=== PATIENT | male | born 1970 | race Caucasian/White ===

== ENCOUNTER 2017-05-28 04:56 | Inpatient (IN) | payer BC, OTHER ==
[2017-05-28 05:10] VITALS: BMI 29.9
[2017-05-28] MEDS ORDERED: predniSONE 20 MG TABLET (UD) PO ONE (05:23)
[2017-05-28] MEDS ORDERED: predniSONE 20 MG TABLET (UD) ONE (05:24)
[2017-05-28] MEDS ORDERED: ALBUTEROL SO4 2.5/IPRATROPIUM 0.5 INH SOL 3 ML VIAL.NEB. NEB ONE (05:24)
--- NOTE | 2017-05-28 05:24 | PDOC ---
History of Present Illness - General Chief Complaint: Asthma Stated Complaint: ASTHMA Time Seen by Provider: 05/28/17 05:04 - History of Present Illness Initial Comments: 05/28/17 05:15 46 yo M with h/o asthma who arrives EMS with SOB. Patient reports worsening SOB over the past 2 weeks with productive cough with green and clear sputum production. Reports that he ran out of albuterol a week ago. Denies N/V, F/C, CP , SOB, abdominal pain, diarrhea, constipation, urinary complaints, weakness, or LOC. Tobacco cessation 3 months ago. Past History - Past Medical History Allergies/Adverse Reactions: Allergies Allergy/AdvReac Type Severity Reaction Status Date / Time No Known Allergies Allergy Verified 05/28/17 05:10 Home Medications: Ambulatory Orders Amlodipine Besylate 10 mg PO DAILY 04/12/13 Metoprolol Tartrate 100 mg PO BID 04/12/13 Oxycodone HCl/Acetaminophen [Percocet 5-325 mg Tablet -] 1 tab PO Q6H PRN #16 tablet 04/12/13 Percocet 5-325 mg Tablet - 1 mg PO 04/12/13 Soma - 04/12/13 Montelukast Na [Singulair -] 10 mg PO HS #30 tablet 05/28/17 HTN: Yes - Immunization History Immunization Up to Date: No - Suicide/Smoking/Psychosocial Hx Smoking History: Never smoked Have you smoked in the past 12 months: No Number of Cigarettes Smoked Daily: 2 Information on smoking cessation initiated: No Hx Alcohol Use: No Drug/Substance Use Hx: No Substance Use Type: None Review of Systems - Review of Systems Comments:: 05/28/17 05:15 GENERAL/CONSTITUTIONAL: No fever or chills. No weakness. HEAD, EYES, EARS, NOSE AND THROAT: No change in vision. No ear pain or discharge. No sore throat.- CARDIOVASCULAR: + SOB. No chest pain. RESPIRATORY: + cough, and wheezing. No hemoptysis. GASTROINTESTINAL: No nausea, vomiting, diarrhea or constipation. GENITOURINARY: No dysuria, frequency, or change in urination. MUSCULOSKELETAL: No joint or muscle swelling or pain. No neck or back pain. SKIN: No rash NEUROLOGIC: No headache, vertigo, loss of consciousness, or change in strength/ sensation. ENDOCRINE: No increased thirst. No abnormal weight change HEMATOLOGIC/LYMPHATIC: No anemia, easy bleeding, or history of blood clots. ALLERGIC/IMMUNOLOGIC: No hives or skin allergy. *Physical Exam - Vital Signs Last Vital Signs Temp Pulse Resp BP Pulse Ox 98.7 F 103 H 24 174/98 95 05/28/17 05:02 05/28/17 05:02 05/28/17 05:02 05/28/17 05:02 05/28/17 05:02 - Physical Exam Comments: 05/28/17 05:16 GENERAL: Awake, alert, and appropriately interactive EYES: PERRLA, clear conjunctiva NOSE: Nose is clear without discharge EARS: EACs and TMs are normal THROAT: Moist mucosa, oropharynx is clear without erythema or exudates, NECK: Supple, no adenopathy, no meningismus CHEST: Lungs are clear without crackles, or wheezes HEART: Regular rhythm, normal S1 and S2, no murmurs ABDOMEN: Soft and nontender with normal bowel sounds, no organomegaly, no mass, no rebound, no guarding EXTREMITIES: Normal NEURO: Behavior normal for age, normal cranial nerves, normal tone SKIN: Unremarkable, no rash, no swelling, no bruising, no signs of injury ED Treatment Course - LABORATORY CBC & Chemistry Diagram: 05/28/17 06:43 05/28/17 06:43 Medical Decision Making - Medical Decision Making 05/28/17 05:43 46 yo M with h/o asthma who arrives EMS with worsening SOB over the past 2 weeks with productive cough with green and clear sputum production. Received 2 duonebs, Epi, Dexamethasone in route. Denies N/V, F/C, CP, SOB, abdominal pain , diarrhea, constipation, urinary complaints, weakness, or LOC. Tobacco cessation 3 months ago. BP 174/98, afebrile, and non hypoxic on RA 95 % O2. Patient with labored breathing and audible bedside insp/exp rhonci. Absent rales. S/s likely 2/2 acute asthma exacerbation in setting of recent viral URI vs. PNA. DDx: Asthma, PNA, Influenza ED Course: Duonebs, Prednisone 60 mg, Magnesium Sulfate 2 mg 05/28/17 07:04 CXR: Unremarkable 05/28/17 07:04 CBC: Unremarkable 05/28/17 07:05 Breathing status not improved. Will microblog inpt. hospitalist for admission. *DC/Admit/Observation/Transfer Diagnosis at time of Disposition: Asthma attack Qualifiers: Asthma severity: moderate Asthma persistence: unspecified Qualified Code(s): J45.901 - Unspecified asthma with (acute) exacerbation - Discharge Dispostion Condition at time of disposition: Fair - Prescriptions Prescriptions: Montelukast Na [Singulair -] 10 mg PO HS #30 tablet - Referrals Referrals: ON STAFF,NOT [Primary Care Provider] - - Patient Instructions Printed Discharge Instructions: Asthma -- Adult Additional Instructions: Please return to the emergency department with any new or worsening symptoms or concerns. Please follow up with PCP within 24-72 hours. - Post Discharge Activity - Attestations Physician Attestion: 05/28/17 07:08 I attest to the documentation provided in this note.
[2017-05-28] MEDS ORDERED: MAGNESIUM SULF 50% (8.12 MEQ/2 ML-1 GM VIAL) IVPB ONE (05:28)
[2017-05-28] MEDS: ALBUTEROL SO4 2.5/IPRATROPIUM 0.5 INH SOL 3 ML VIAL.NEB. NEB SCH ×4 (05:29→06:52)
[2017-05-28] MEDS ORDERED: MAGNESIUM SULFATE IN WATER 2 GM/50 ML IVPB IVPB ONE (05:45)
--- NOTE | 2017-05-28 06:14 | PDOC ---
Attending Attestation - Resident Resident Name: Talha James - ED Attending Attestation I have performed the following: I have examined & evaluated the patient, The case was reviewed & discussed with the resident, I agree w/resident's findings & plan - HPI HPI: 05/28/17 06:14 Pt comes with asthma exacerbation.
[2017-05-28 06:55] LABS: BASO % 0.3 % (0-2.0); EOS % 17.5 % (0-4.5); HEMATOCRIT 42.1 % (35.4-49); HEMOGLOBIN 14.1 GM/dL (11.7-16.9); LYMPH % 8.1 % (8-40); MCH 31.1 pg (25.7-33.7); MCHC 33.5 g/dl (32.0-35.9); MONO % 5.1 % (3.8-10.2); PLATELET COUNT 250 K/MM3 (134-434); RBC 4.53 M/mm3 (4.00-5.60); RDW 13.3 % (11.9-15.9); WHITE BLOOD COUNT 9.6 K/mm3 (4.0-10.0)
[2017-05-28 07:18] LABS: INR 1.01 (0.82-1.09); PROTHROMBIN TIME (PATIENT) 11.4 SEC (9.98-11.88)
[2017-05-28] MEDS ORDERED: MONTELUKAST NA 10 MG TABLET PO ONE (07:23)
[2017-05-28 07:29] LABS: ALBUMIN 3.6 g/dl (3.4-5.0); ALK PHOS 85 U/L (45-117); ANION GAP 8 (8-16); BILIRUBIN,TOTAL 0.3 mg/dL (0.2-1.0); BLOOD UREA NITROGEN 20 mg/dL (7-18); CALCIUM 8.1 mg/dL (8.5-10.1); CHLORIDE 107 mmol/L (98-107); CO2 24 mmol/L (21-32); CREATININE 0.9 mg/dL (0.7-1.3); GLUCOSE,RANDOM 116 mg/dL (74-106); POTASSIUM 4.4 mmol/L (3.5-5.1); SGOT/AST 30 U/L (15-37); SGPT/ALT 36 U/L (12-78); SODIUM 139 mmol/L (136-145); TOT PROT 6.9 g/dl (6.4-8.2)
[2017-05-28 08:06] LABS: ARTERIAL BLOOD GAS BASE EXCESS -2.4 meq/l (-2-2); ARTERIAL BLOOD GAS PCO2 48.3 mmHg (35-45); ARTERIAL BLOOD GAS PO2 91.6 mmHg (80-100); ARTERIAL BLOOD GAS pH 7.31 (7.35-7.45)
--- NOTE | 2017-05-28 08:15 | PDOC ---
*Physical Exam - Vital Signs Last Vital Signs Temp Pulse Resp BP Pulse Ox 98.7 F 82 16 112/58 99 05/28/17 05:02 05/28/17 07:01 05/28/17 07:01 05/28/17 07:01 05/28/17 07:01 05/28/17 07:[address] James at the beginning of my shift. 46 YOM with h/o asthma who p/w 2 weeks mild SOB with acute worsening this morning. Labored breathing, called 911, received nebs, dex, and epi en route, remained with increased WOB on arrival here to the ED. Given DuoNeb, prednisone, Mg, and Singulair in ED and remains with increased WOB. ABG ordered and will draw, will admit for asthma exacerbation. - Physical Exam Respiratory/Chest: positive: Accessory Muscle Use, Labored Respiration, Rapid RR , Wheezing (audible across the room). negative: Stridor Cardiovascular: positive: Regular Rhythm, Regular Rate, S1, S2. negative: Edema , JVD, Murmur ED Treatment Course - LABORATORY CBC & Chemistry Diagram: 05/28/17 06:43 05/28/17 06:43 - ADDITIONAL ORDERS Additional order review: Laboratory Results 05/28/17 05/28/17 06:43 06:43 PT with INR 11.40 INR 1.01 Sodium 139 Potassium 4.4 Chloride 107 Carbon Dioxide 24 Anion Gap 8 BUN 20 H Creatinine 0.9 Creat Clearance w eGFR > 60 Random Glucose 116 H Calcium 8.1 L Total Bilirubin 0.3 AST 30 ALT 36 Alkaline Phosphatase 85 Total Protein 6.9 Albumin 3.6 05/28/17 06:07 Influenza Types A,B Antigen (BRITTANY) - Final Nasopharyngeal Swab - Final 05/28/17 06:43 RBC 4.53 MCV 93.0 MCHC 33.5 RDW 13.3 MPV 8.0 Neutrophils % 69.0 Lymphocytes % 8.1 Monocytes % 5.1 Eosinophils % 17.5 H Basophils % 0.3 - Medications Given in the ED: ED Medications Discontinued Medications Generic Name Dose Route Start Last Admin Trade Name Freq PRN Reason Stop Dose Admin Albuterol/Ipratropium 1 amp 05/28/17 05:30 05/28/17 06:52 Duoneb - NEB 05/28/17 06:16 1 amp Q15M WALLY Administration MAGNESIUM SULFATE IN WATER 2 gm in 50 mls @ 50 mls/hr 05/28/17 05:45 06:52 Magnesium Sulf 2 G/50 Ml Bag IVPB 05/28/17 06:44 50 mls/hr ONCE ONE Administration Prednisone 60 mg 05/28/17 05:23 05/28/17 05:29 Deltasone - PO 05/28/17 05:24 60 mg ONCE ONE Administration Medical Decision Making - Medical Decision Making 05/28/17 08:15 ABG notable for pH 7.31, PCO2 48.3. MBMD sent for admission (Med/Surg Obs). 05/28/17 08:47 Patient remains tachypneic, wheezing audible across the room. MBMD sent for admission. 05/28/17 09:30 Patient admitted to Med/Surg Obs to Dr. Maria. Azithromycin PO one-time dose ordered as patient notes 2 mo cough. *DC/Admit/Observation/Transfer Diagnosis at time of Disposition: Hypercapnia Asthma attack Qualifiers: Asthma severity: moderate Asthma persistence: unspecified Qualified Code(s): J45.901 - Unspecified asthma with (acute) exacerbation Chronic bronchitis Qualifiers: Chronic bronchitis type: unspecified Qualified Code(s): J42 - Unspecified chronic bronchitis - Discharge Dispostion Condition at time of disposition: Guarded Admit: Yes - Referrals - Patient Instructions - Post Discharge Activity
[2017-05-28] MEDS ORDERED: MONTELUKAST NA 10 MG TABLET ONE (08:41)
[2017-05-28] MEDS ORDERED: AZITHROMYCIN 500 MG TABLET PO ONE (09:14)
[2017-05-28] MEDS ORDERED: AZITHROMYCIN 250 MG TABLET ONE (09:30)
[2017-05-28] MEDS ORDERED: methylPREDNISolone NA SUCC 40 MG/1 ML VIAL IVPUSH SCH (10:00)
--- NOTE | 2017-05-28 10:14 | HP ---
CHIEF COMPLAINT: shortness of breath PCP: doesn't have one HISTORY OF PRESENT ILLNESS: This is a 46 year old male with a past medical history of hypertension and asthma presenting to the ED for shortness of breath. Patient states that he has had 3 "attacks" where he was not able to breathe in the last 3 weeks, the last of which happened last night and prompted him to come to the emergency room. He states that his chest is very tight and that he has difficulty getting air into his lungs. He states that overall, he hasn't been feeling well for 2 months, having symptoms similar to the flu and additional chest tightness. He states that before these episodes, he has had asthma attacks over 15 years ago. Patient went to the doctor 2 months ago and got a short course of prednisone which had run out, and ever since he reports not feeling well. Patient states that he has never been intubated before. He states that he works in construction and has been around a house with possible noxious smells. Denies chest pain, nausea, vomiting, diarrhea, fevers, chills. ER course was notable for: (1) Zithromax 500 given (2) EKG normal (3) ABG respiratory acidosis Recent Travel: none PAST MEDICAL HISTORY: Hypertension, Asthma Social History: Smoking: none Alcohol: none Drugs: none Family History: father early from unknown cause, mother at 88yo from unknown cause Allergies No Known Allergies Allergy (Verified 05/28/17 05:10) HOME MEDICATIONS: Home Medications Medication Instructions Recorded Amlodipine Besylate [Amlodipine 10 tab PO DAILY MDD 10 05/28/17 Besylate] Metoprolol Tartrate 100 mg PO TID 05/28/17 Montelukast Sodium [Singulair] 10 mg PO HS 05/28/17 REVIEW OF SYSTEMS CONSTITUTIONAL: Absent: fever, chills, diaphoresis, generalized weakness, malaise, loss of appetite, weight change HEENT: nasal congestion, Absent: rhinorrhea,, throat pain, throat swelling, difficulty swallowing, mouth swelling, ear pain, eye pain, visual changes CARDIOVASCULAR: lightheadedness Absent: chest pain, syncope, palpitations, irregular heart rate, , peripheral edema RESPIRATORY: cough, shortness of breath, wheezing Absent:, dyspnea with exertion, orthopnea, stridor, hemoptysis GASTROINTESTINAL: Absent: abdominal pain, abdominal distension, nausea, vomiting, diarrhea, constipation, melena, hematochezia GENITOURINARY: Absent: dysuria, frequency, urgency, hesitancy, hematuria, flank pain, genital pain MUSCULOSKELETAL: Absent: myalgia, arthralgia, joint swelling, back pain, neck pain SKIN: Absent: rash, itching, pallor HEMATOLOGIC/IMMUNOLOGIC: Absent: easy bleeding, easy bruising, lymphadenopathy, frequent infections ENDOCRINE: Absent: unexplained weight gain, unexplained weight loss, heat intolerance, cold intolerance NEUROLOGIC: Absent: headache, focal weakness or paresthesias, dizziness, unsteady gait, seizure, mental status changes, bladder or bowel incontinence PSYCHIATRIC: Absent: anxiety, depression, suicidal or homicidal ideation, hallucinations. PHYSICAL EXAMINATION Vital Signs - 24 hr 05/28/17 05/28/17 05/28/17 05:02 07:01 08:10 Temperature 98.7 F Pulse Rate 103 H Pulse Rate [ 82 Apical] Respiratory 24 16 Rate Blood Pressure 174/98 Blood Pressure 112/58 [Right Arm] O2 Sat by Pulse 95 99 93 L Oximetry (%) GENERAL: Awake, alert, and fully oriented, in no acute distress. HEAD: Normal with no signs of trauma. EYES: Pupils equal, round and reactive to light, extraocular movements intact, sclera anicteric, conjunctiva clear. No lid lag. EARS, NOSE, THROAT: Ears normal, nares patent, oropharynx clear without exudates. Moist mucous membranes. LUNGS: Breath sounds equal, good airflow bilaterally, inspiratory and expiratory wheezes noted bilaterally, no crackles HEART: Regular rate and rhythm, normal S1 and S2 without murmur, rub or gallop. ABDOMEN: Soft, nontender, not distended, normoactive bowel sounds, no guarding, no rebound, no masses. No hepatomegaly or splenomegaly. MUSCULOSKELETAL: Normal range of motion at all joints. No bony deformities or tenderness. No CVA tenderness. UPPER EXTREMITIES: 2+ pulses, warm, well-perfused. No cyanosis. No clubbing. No peripheral edema. LOWER EXTREMITIES: 2+ pulses, warm, well-perfused. No calf tenderness. No peripheral edema. +1 muscle strength in LLE likely due to previous fractures NEUROLOGICAL: Cranial nerves II-XII intact. Normal speech. Normal gait. PSYCHIATRIC: Cooperative. Good eye contact. Appropriate mood and affect. SKIN: Warm, dry, normal turgor, no rashes or lesions noted, normal capillary refill. Laboratory Results - last 24 hr 05/28/17 05/28/17 05/28/17 06:43 06:43 06:43 WBC 9.6 RBC 4.53 Hgb 14.1 Hct 42.1 MCV 93.0 MCH 31.1 MCHC 33.5 RDW 13.3 Plt Count 250 MPV 8.0 Neutrophils % 69.0 Lymphocytes % 8.1 Monocytes % 5.1 Eosinophils % 17.5 H Basophils % 0.3 PT with INR 11.40 INR 1.01 Puncture Site ABG pH ABG pCO2 at Pt Temp ABG pO2 at Pt Temp ABG HCO3 ABG O2 Sat (Measured) ABG O2 Content ABG Base Excess Bobby Test Carboxyhemoglobin Methemoglobin Oxygen Flow Rate Sodium 139 Potassium 4.4 Chloride 107 Carbon Dioxide 24 Anion Gap 8 BUN 20 H Creatinine 0.9 Creat Clearance w eGFR > 60 Random Glucose 116 H Calcium 8.1 L Total Bilirubin 0.3 AST 30 ALT 36 Alkaline Phosphatase 85 Total Protein 6.9 Albumin 3.6 05/28/17 08:00 WBC RBC Hgb Hct MCV MCH MCHC RDW Plt Count MPV Neutrophils % Lymphocytes % Monocytes % Eosinophils % Basophils % PT with INR INR Puncture Site No Result Required. ABG pH 7.31 L ABG pCO2 at Pt Temp 48.3 H ABG pO2 at Pt Temp 91.6 ABG HCO3 23.7 ABG O2 Sat (Measured) 97.0 ABG O2 Content 19.4 ABG Base Excess -2.4 L Bobby Test No Result Required. Carboxyhemoglobin 1.0 Methemoglobin 0.8 Oxygen Flow Rate No Result Required. Sodium Potassium Chloride Carbon Dioxide Anion Gap BUN Creatinine Creat Clearance w eGFR Random Glucose Calcium Total Bilirubin AST ALT Alkaline Phosphatase Total Protein Albumin ASSESSMENT/PLAN: 46 year old male with a pmh of HTN and Asthma presents for acute asthma exacerbation #Asthma Exacerbation: patient has clinically been improving since arriving at ED -CXR negative for any acute lung pathology -Solumedrol 40mg IV BID -Symbicort 2 puffs BID -mag sulfate 2gm -azithromycin 500 PO daily (received dose in ED) #Hypertension: stable -continue amlodipine 10mg daily -continue metoprolol tartrate 100mg PO TID #Chronic Pain: controlled -oxycodone 10mg Q12 PRN -cyclobenzaprine #FEN no standing fluids replete lytes in AM sodium controlled diet #Prophylaxis heparin 5000 subQ TID #Disposition -Admit to obs Visit type - Emergency Visit Emergency Visit: Yes ED Registration Date: 05/28/17 Care time: The patient presented to the Emergency Department on the above date and was hospitalized for further evaluation of their emergent condition. - New Patient This patient is new to me today: Yes Date on this admission: 05/28/17 - Critical Care Critical Care patient: No
[2017-05-28] MEDS: amLODIPine BESYLATE 10 MG TABLET (FP) PO SCH (11:42)
--- NOTE | 2017-05-28 12:07 | EKG ---
Test Reason : Blood Pressure : / mmHG Vent. Rate : 073 BPM Atrial Rate : 073 BPM P-R Int : 164 ms QRS Dur : 094 ms QT Int : 402 ms P-R-T Axes : 055 061 062 degrees QTc Int : 442 ms NORMAL SINUS RHYTHM EARLY REPOLARIZATION NORMAL ECG NO PREVIOUS ECGS AVAILABLE Confirmed by MD JAN, LUCIANO ([id number]) on 05/28/2017 12:06:24 PM Referred By: Confirmed By:LUCIANO MONTOYA MD
[2017-05-28] MEDS ORDERED: FLUTICASONE/SALMETEROL 100 MCG/50 MCG DISKUS IH SCH (12:30)
--- NOTE | 2017-05-28 12:58 | PN ---
Teaching Attending Note Name of Resident: Vishnu Dunaway ATTENDING PHYSICIAN STATEMENT I saw and evaluated the patient. I reviewed the resident's note and discussed the case with the resident. I agree with the resident's findings and plan as documented. SUBJECTIVE: cough , green/yellow sputum production. has no fever or chills. reports sick contact . has ran out of his albuterol inhaler. did not afford advair in past , denies dysuria , diarrhea , sore throat , or runny nose. no intubation in past. chronic back pain with LLE weakness that has not changes in severity . denies cp , but has cramps in abd wall muscles OBJECTIVE: NAD , no accessory muscle use, no tachypnia . HEENT: NC.AT, MMM, no JVd, nl oropharynx . no facial droop. CV: RRR, no MRG Lungs : generalized wheezing , good air entry, no crackles , Ext: no edema or erythema abd: soft, NT, ND , NL BS neuro: no facial droop, EOMI, round equal pupils , reactive to light , tongue and uvula at mid line. strength 5/5 in upper extremities proximally and distally, RLE : strength 5/5 proximally and distally. LLE : hip flexion 3/5, knee flexion and extention 4/5 . ankle dorsiflexion 4/5 , plantar dorsiflexion 5/5 . reflexes 2+ biceps b/l, 2+ R knee jerkand 1+ L knee jerk sensation to light touch is intact except LLE ( decreased ) ASSESSMENT AND PLAN: 46 y/o gentleman with h/o HTN, chronic back pain, and anxiety who presented with SOBand was found to have acute Asthma exacerbation 1- Acute Asthma exacerbation: although ABG indicates slight elevationin Co2, the pt has no acessory muscle use , and speaks in full sentences and has no tachypnia . No evidence of PNA , rapid flu neg . - check full RVP PCR - steorids - add symbicort - nebs PRN and standing - O2 to keep sats > 91% - due to green sputum production + cough x > 10 days , treatment for acute bacterial bronchitis is indicated. give azithro - follow his eiosinophelia . 2- Chronic back pain, with known LLE weakness. - give oxycodone carefully. ( give 10 mg BID , takes 30 TID at home ) 3- HTN: cont his lopressor and norvasc at home doses 4- DVT PX HLOC
[2017-05-28] MEDS ORDERED: CYCLOBENZAPRINE HCL 10 MG TABLET (FP) PO PRN (13:20)
[2017-05-28] MEDS ORDERED: IBUPROFEN 400 MG TABLET (FP) PO ONE (13:20)
[2017-05-28] MEDS ORDERED: oxyCODONE HCL 5 MG TABLET PO PRN (13:21)
[2017-05-28] MEDS: BUDESONIDE/FORMETEROL FUMARATE 80/4.5 mcg INHALER IH SCH ×2 (14:27→22:12)
[2017-05-28] MEDS: METOPROLOL TARTRATE 50 MG TABLET (FP) PO SCH ×2 (14:28→22:14)
[2017-05-28] MEDS ORDERED: oxyCODONE HCL 5 MG TABLET ONE (14:32)
[2017-05-28] MEDS: HEPARIN NA (PORCINE) 5,000 UNITS/ML 1ML VIAL SQ SCH ×2 (16:17→22:12)
[2017-05-28] MEDS ORDERED: ALBUTEROL SO4 2.5/IPRATROPIUM 0.5 INH SOL 3 ML VIAL.NEB. NEB PRN (21:15)
[2017-05-28] MEDS ORDERED: oxyCODONE HCL 5 MG TABLET PO SCH (22:00)
[2017-05-28] MEDS ORDERED: MONTELUKAST NA 10 MG TABLET PO SCH (22:00)
[2017-05-28] MEDS: oxyCODONE HCL 5 MG TABLET PO PRN (22:13)
[2017-05-28] MEDS: methylPREDNISolone NA SUCC 40 MG/1 ML VIAL IVPUSH SCH (22:15)
[2017-05-29] MEDS: METOPROLOL TARTRATE 50 MG TABLET (FP) PO SCH (05:22)
[2017-05-29] MEDS: oxyCODONE HCL 5 MG TABLET PO PRN ×2 (05:22→11:28)
[2017-05-29] MEDS: HEPARIN NA (PORCINE) 5,000 UNITS/ML 1ML VIAL SQ SCH (05:24)
[2017-05-29 07:48] LABS: HEMATOCRIT 45.3 % (35.4-49); HEMOGLOBIN 14.8 GM/dL (11.7-16.9); MCH 30.6 pg (25.7-33.7); MCHC 32.7 g/dl (32.0-35.9); MEAN CELL VOLUME 93.6 fl (80-96); MEAN PLT VOLUME 8.8 fl (7.5-11.1); PLATELET COUNT 268 K/MM3 (134-434); RBC 4.84 M/mm3 (4.00-5.60); RDW 13.3 % (11.9-15.9); WHITE BLOOD COUNT 11.2 K/mm3 (4.0-10.0)
[2017-05-29 08:08] LABS: CHLORIDE 104 mmol/L (98-107); POTASSIUM 4.3 mmol/L (3.5-5.1); SODIUM 140 mmol/L (136-145)
[2017-05-29 08:15] LABS: ANION GAP 12 (8-16); BLOOD UREA NITROGEN 17 mg/dL (7-18); CALCIUM 9.1 mg/dL (8.5-10.1); CO2 24 mmol/L (21-32); CREATININE 0.7 mg/dL (0.7-1.3); GLUCOSE,RANDOM 118 mg/dL (74-106)
[2017-05-29] MEDS: methylPREDNISolone NA SUCC 40 MG/1 ML VIAL IVPUSH SCH (09:44)
[2017-05-29] MEDS: amLODIPine BESYLATE 10 MG TABLET (FP) PO SCH (09:44)
[2017-05-29] MEDS ORDERED: PNEUMOCOCCAL 23 VACCINE 0.5 ML VIAL IM ONE (09:45)
[2017-05-29 09:52] VITALS: BP 136/70; TEMP 97.7
[2017-05-29] MEDS ORDERED: FLU VACCINE QUAD 60 MCG/0.5 ML (MDV 17-18) IM ONE (10:00)
[2017-05-29] MEDS ORDERED: PNEUMOC 13-VAL CONJ-DIP CRM/PF 0.5 ML DISP.SYRIN IM ONE (10:00)
[2017-05-29] MEDS ORDERED: AZITHROMYCIN 500 MG TABLET PO SCH (10:00)
[2017-05-29] MEDS ORDERED: ALBUTEROL SO4 2.5/IPRATROPIUM 0.5 INH SOL 3 ML VIAL.NEB. NEB SCH (12:00)
[2017-05-29 12:32] VITALS: PULSE 107
--- NOTE | 2017-05-29 17:38 | DS ---
Physical Examination Vital Signs: Vital Signs Temperature 97.7 F 05/29/17 09:00 Pulse Rate 107 H 05/29/17 12:31 Respiratory Rate 20 05/29/17 09:00 Blood Pressure 136/70 05/29/17 09:00 O2 Sat by Pulse Oximetry (%) 93 L 05/29/17 12:31 Findings/Remarks: no OSB , even with ambulating , feels much better PE : NAD , comfortabl e, speaks in full sentences HEENT: NC.AT, MMM, no JVd, CV: RRR, no MRG Lungs : prolonged exp phase. minmal wheezing ,m good air entry Ext: no edema or erythema Labs: CBC, BMP 05/29/17 06:00 05/29/17 06:00 Discharge Summary Reason For Visit: EXACERBATION OF ASTHMA Hospital Course: 46 y/o gentleman with h/o HTN, chronic back pain, and anxiety who presented with SOB after running out of his inhalers . at presentation , Cxray did not show any infiltrate and rapid flu test was neg. labs were nl. he was diagnosed with asthma exacerbation , and acute bronchitis . he was started on steroids, Nebs, symbicort, and O2 as he was hypoxic on admission He was treated with azithro for acute bacterial bronchitis as his purulent sputum production was for more than 10 days ( total of 7 days of Abx ) today , his symptoms improved significantly, air movement and wheezing have improved . Ambulatory pulse ox did not indicate O2 need even with ambulation . he requested to go home . he was dc on a prednisone taper nad inhalers/Nebs . as well as a referral to Pulm. he has a new PCP , shira ovalle know the name of , and he will see in 1 week. His chronic meds for back pain and HTN were continued here , but was not given any refill for narcotics at dc condition improved f/u with PCP and pulm time spent 30 min labs to follow : RVP Condition: Improved - Instructions Diet, Activity, Other Instructions: - ASthma exacerbation - please follow with your PCP ( the doctor in [place] ) in 3-5 days - please take prednisone as instructed per taper ( take 50 mg daily x 3 days then 40 mg x 3 days then 30 mg x 3 days then 20 mg x 3 days then 10 mg daily x 3 days then stop) - do not stop prednisone without a doctor help - take your inhalers as prescribed ( symbicort is a new one ) - use your Nebulizer as well. - contact your doctor before you run out of your medicine - wear a mask at work and when around sick people - avoid smoking and second hand smoking - you are refeered to Dr. heart ( pulmonary ) -Please return to the emergency department with any new or worsening symptoms or concerns. Referrals: ON STAFF,NOT [Primary Care Provider] - Vishnu Heart MD [Staff Physician] - Disposition: HOME - Home Medications Comprehensive Discharge Medication List: Ambulatory Orders Albuterol 0.083% Nebulizer Marie [Ventolin 0.083% Nebulizer Soln -] 1 neb NEB QID PRN #30 amp 05/29/17 Albuterol Sulfate Inhaler - [Ventolin HFA Inhaler -] 1 - 2 inh PO Q4H PRN #2 inhaler 05/29/17 Amlodipine Besylate 10 tab PO DAILY #30 tablet MDD 10 05/29/17 Azithromycin 500 mg PO DAILY #5 tablet 05/29/17 Budesonide/Formeterol Fumarate [SYMBICORT 80/4.5mcg -] 2 puff IH BID #1 inhaler 05/29/17 Metoprolol Tartrate 100 mg PO TID #60 tablet 05/29/17 Montelukast Sodium [Singulair] 10 mg PO HS #30 tablet 05/29/17 Oxycodone HCl 30 mg PO Q6H PRN 05/29/17 Prednisone 50 mg PO DAILY #45 tablet 05/29/17 This patient is new to me today: No Emergency Visit: Yes ED Registration Date: 05/28/17 Care time: The patient presented to the Emergency Department on the above date and was hospitalized for further evaluation of their emergent condition. Critical Care patient: No - Discharge Referral Referred to [facility] No
== END 2017-05-29 13:35 | disposition home or self-care (01) | DRG 141 ==
LOC: SUPCPDRO 04:56 → JER 04:56 → JERBED 09:12 → UNDOADMOB 09:12 → INTOOBSV 09:12 → JERBED 09:51 → OBSVTOIN 12:33 → J7W 18:12
PROVIDERS: ADMIT Internal Medicine; ATTEND Internal Medicine
DX: J45.901 Unspecified asthma with (acute) exacerbation (principal); I10 Essential (primary) hypertension; F41.9 Anxiety disorder, unspecified; M54.9 Dorsalgia, unspecified
CPT/HCPCS: 36415; 36600; 71045-TC; 80048; 80053; 82375; 82803; 83050; 85025; 85027; 85610; 87070; 87205; 87633; 87804; 93005; 93010; 94640; 94761; 99284-25; G0378; J1644

== ENCOUNTER 2018-02-25 23:39 | Emergency (ER) | payer OTHER ==
[2018-02-25 23:59] VITALS: BP 142/92; PULSE 104; TEMP 98.4; BMI 27.8
--- NOTE | 2018-02-25 23:59 | PDOC ---
History of Present Illness - General Chief Complaint: Injury Stated Complaint: FALL Time Seen by Provider: 02/25/18 23:45 History Source: Patient Exam Limitations: No Limitations - History of Present Illness Initial Comments: 02/26/18 00:13 Best Contact: PCP: Dr. Barrett Pmhx: Hypertension, chronic pain, asthma Pshx:Denies Allergies: NKDA FH:0 Social Hx: Cigarettes/ 0 Alcohol/ social Drugs/ denies 47-year-old male twice a day a presents to the ER complaining of a laceration to the left interior thigh. Patient states as he was walking, he tripped causing a broken glass to cut left medial thigh. Patient states he twisted his lower right back as he was falling. Patient denies any head/neck he/pain. Patient denies dizziness, lightheadedness, headache, facial pains, extremity numbness or tingling sensation, weakness, chest pain, shortness of breath, abdominal pains. Patient states he feels fine. Tetanus within 2 years. Patient adamantly refuses any images to his back. Patient initially states that he believes he tripped but wasn't 100% sure. I explained to the patient that I will get a CAT scan of his head and do a cardiac workup but patient adamantly refuses. Patient is alert and oriented 3. Patient states he was only tired because he works all day and therefore she tripped and fell. EMS that brought the patient in states patient was alert and oriented when they picked him up with a complaint of just a laceration to his left thigh. Patient kept saying that EMS discriminated against him for bringing him into this facility. Patient states he wanted to go to [facility] when he got picked up. Patient states there are too many minorities at this facility. [id number]: Patient eloped from the ER Past History - Past Medical History Allergies/Adverse Reactions: Allergies Allergy/AdvReac Type Severity Reaction Status Date / Time No Known Allergies Allergy Verified 02/25/18 23:59 Home Medications: Ambulatory Orders Albuterol 0.083% Nebulizer Marie [Ventolin 0.083% Nebulizer Soln -] 1 neb NEB QID PRN #30 amp 05/29/17 Albuterol Sulfate Inhaler - [Ventolin HFA Inhaler -] 1 - 2 inh PO Q4H PRN #2 inhaler 05/29/17 Amlodipine Besylate 10 tab PO DAILY #30 tablet MDD 10 05/29/17 Azithromycin 500 mg PO DAILY #5 tablet 05/29/17 Budesonide/Formeterol Fumarate [SYMBICORT 80/4.5mcg -] 2 puff IH BID #1 inhaler 05/29/17 Metoprolol Tartrate 100 mg PO TID #60 tablet 05/29/17 Montelukast Sodium [Singulair] 10 mg PO HS #30 tablet 05/29/17 Oxycodone HCl 30 mg PO Q6H PRN 05/29/17 Prednisone 50 mg PO DAILY #45 tablet 05/29/17 Anemia: No Asthma: Yes Cancer: No Cardiac Disorders: No CVA: No COPD: No CHF: No Dementia: No Diabetes: No GI Disorders: No Disorders: No HTN: Yes Hypercholesterolemia: No Liver Disease: No Seizures: No Thyroid Disease: No - Surgical History Abdominal Surgery: No Appendectomy: No Cardiac Surgery: No Cholecystectomy: No Lung Surgery: No Neurologic Surgery: No Orthopedic Surgery: Yes (left thumb) - Immunization History Immunization Up to Date: No - Suicide/Smoking/Psychosocial Hx Smoking History: Never smoked Have you smoked in the past 12 months: No Number of Cigarettes Smoked Daily: 2 Hx Alcohol Use: No Drug/Substance Use Hx: No Substance Use Type: None Hx Substance Use Treatment: No Review of Systems - Review of Systems Able to Perform ROS?: Yes Comments:: 02/26/18 00:16 CONSTITUTIONAL: Absent: fever, chills, diaphoresis, generalized weakness, malaise, loss of appetite HEENT: Absent: rhinorrhea, nasal congestion, throat pain, throat swelling, difficulty swallowing, mouth swelling, ear pain, eye pain, visual Changes CARDIOVASCULAR: Absent: chest pain, loss of consciousness, palpitations, irregular heart rate, peripheral edema RESPIRATORY: Absent: cough, shortness of breath, dyspnea with exertion, orthopnea, wheezing, stridor, hemoptysis GASTROINTESTINAL: Absent: abdominal pain, abdominal distension, nausea, vomiting, diarrhea, constipation, melena, hematochezia GENITOURINARY: Absent: dysuria, frequency, urgency, hesitancy, hematuria, flank pain, genital pain MUSCULOSKELETAL: Absent: myalgia, arthralgia, joint swelling SKIN: Left medial thigh :7cm oblique lac Absent: rash, itching, pallor HEMATOLOGIC/IMMUNOLOGIC: Absent: easy bleeding, easy bruising, lymphadenopathy, frequent infections ENDOCRINE: Absent: unexplained weight gain, unexplained weight loss, heat intolerance, cold intolerance NEUROLOGIC: Absent: headache, focal weakness or paresthesias, dizziness, unsteady gait, seizure, mental status changes, bladder or bowel incontinence PSYCHIATRIC: Absent: anxiety, depression, suicidal or homicidal ideation, hallucinations. Is the patient limited Romanian proficient: No *Physical Exam - Physical Exam Comments: 02/26/18 00:17 GENERAL: Well developed, well nourished. Awake and alert. No acute distress. HEENT: Normocephalic, atraumatic. PERRLA, EOMI. No conjunctival pallor. Sclera are non- icteric. Moist mucous membranes. Oropharynx is clear. NECK: Supple. Full ROM. No JVD. Carotid pulses 2+ and symmetric, without bruits. No thyromegaly. No lymphadenopathy. CARDIOVASCULAR: Regular rate and rhythm. No murmurs, rubs, or gallops. Distal pulses are 2+ and symmetric. PULMONARY: No evidence of respiratory distress. Lungs clear to auscultation bilaterally. No wheezing, rales or rhonchi. ABDOMINAL: Soft. Non-tender. Non-distended. No rebound or guarding. No organomegaly. Normoactive bowel sounds. MUSCULOSKELETAL Normal range of motion at all joints. No bony deformities or tenderness. No CVA tenderness. EXTREMITIES: No cyanosis. No clubbing. No edema. No calf tenderness. SKIN: 7cm oblique lac Neg active bleed Left knee/ankle F.R.O.M. 2+dp pulse Warm and dry. Normal capillary refill. No rashes. No jaundice. NEUROLOGICAL: Alert, awake, appropriate. Cranial nerves 2-12 intact. No deficits to light touch and temperature in face, upper extremities and lower extremities. No motor deficits in the in face, upper extremities and lower extremities. Normoreflexic in the upper and lower extremities. Normal speech. Toes are down- going bilaterally. Gait is normal without ataxia. PSYCHIATRIC: Cooperative. Good eye contact. Appropriate mood and affect. ED Treatment Course - RADIOLOGY Radiograph Interpretation: 02/26/18 00:19 Xray LS spine= neg *DC/Admit/Observation/Transfer Diagnosis at time of Disposition: Laceration of thigh, left Qualifiers: Encounter type: initial encounter Qualified Code(s): S71.112A - Laceration without foreign body, left thigh, initial encounter Low back strain Qualifiers: Encounter type: initial encounter Qualified Code(s): S39.012A - Strain of muscle, fascia and tendon of lower back, initial encounter - Discharge Dispostion Disposition: ELOPED Condition at time of disposition: Fair Decision to Admit order: No - Referrals - Patient Instructions - Post Discharge Activity
[2018-02-26] MEDS ORDERED: SODIUM CHLORIDE 1,000 ML IV STA (00:01)
--- NOTE | 2018-02-26 01:11 | PDOC ---
*Physical Exam - Vital Signs Last Vital Signs Temp Pulse Resp BP Pulse Ox 98.4 F 104 H 19 142/92 98 02/25/18 23:40 02/25/18 23:40 02/25/18 23:40 02/25/18 23:40 02/25/18 23:40 Medical Decision Making - Medical Decision Making 02/26/18 01:07 Mr Coleman presents to the ER s/p laceration to the left thigh He is frustrated and disappointed that he was not taken to [facility], therefore left the ER Pt has Eloped *DC/Admit/Observation/Transfer Diagnosis at time of Disposition: Laceration of thigh, left Qualifiers: Encounter type: initial encounter Qualified Code(s): S71.112A - Laceration without foreign body, left thigh, initial encounter Low back strain Qualifiers: Encounter type: initial encounter Qualified Code(s): S39.012A - Strain of muscle, fascia and tendon of lower back, initial encounter - Discharge Dispostion Disposition: ELOPED Condition at time of disposition: Fair - Referrals - Patient Instructions - Post Discharge Activity
== END 2018-02-26 01:20 | disposition left against medical advice (07) ==
LOC: JER 23:39
DX: S71.112A Laceration without foreign body, left thigh, initial encounter (principal); S39.012A Strain of muscle, fascia and tendon of lower back, initial encounter; W01.110A Fall on same level from slipping, tripping and stumbling with subsequent striking against sharp glass, initial encounter; Y93.89 Activity, other specified; Y92.89 Other specified places as the place of occurrence of the external cause; Y99.8 Other external cause status; I10 Essential (primary) hypertension; J45.909 Unspecified asthma, uncomplicated
CPT/HCPCS: 99281-25

== ENCOUNTER 2018-02-27 15:18 | Emergency (ER) | payer OTHER ==
--- NOTE | 2018-02-27 15:34 | PDOC ---
Attending Attestation - Resident Resident Name: MameShree ibarra - ED Attending Attestation I have performed the following: I have examined & evaluated the patient, The case was reviewed & discussed with the resident, I agree w/resident's findings & plan, Exceptions are as noted - HPI HPI: 02/27/18 16:30 47yo male with L thigh injury on tuesday. States he had a mechanical trip and fall on tuesday onto a metal piling. Pt presented to [facility] for wound eval. Tetanus within last 5 years. Pt eloped from the ED on tuesday. Pt presents today for wound eval. Pt with necrotic edge to the wound and subcut exposure. Surrounding erythema concerning for cellulitis. - Physicial Exam PE: 02/27/18 16:31 Gen: aaox3, nad heart: +s1s2 reg Lungs: cta b/l abd: soft, nt/nd +bs ext: 4cm elliptical laceration with necrotic edges, surrounding erythema, lymphangitic spread proximally, warmth, induration, expososed necrotic subcut soft tissue, poor wound healing, swelling pedal pulses intact, ambulates with a steady gait - Medical Decision Making 02/27/18 15:34 I, Dr. Elayne Gerardo, DO, attest that this document has been prepared under my direction and personally reviewed by me in its entirety. I further attest, that it accurately reflects all work, treatment, procedures and medical decision -making performed by me. 02/27/18 16:38 a/p: 47yo male with L thigh wound from tuesday -concern for infection to the wound -will send labs, cultures, xrays -will start IV abx -tetanus UTD -last meal was 830a -will discuss with surgery 02/27/18 16:[address] Alba who will be over to eval the wound 02/27/18 18:47 no foreign body visualized 02/27/18 18:59 pt will be signed out to the oncoming ED physician pending surgical eval pt receiving IV vanco at this time ivf hydration running
[2018-02-27 15:48] VITALS: BP 155/88; PULSE 66; TEMP 97.9; BMI 27.8
[2018-02-27] MEDS ORDERED: PIPERACILLIN/TAZOB 3.375 GM 3.375 GM in DEXTROSE 5%-WATER - 50 ML IVPB ONE (16:09)
[2018-02-27] MEDS ORDERED: VANCOMYCIN 1 GRAM (PRE-DOCKED) 1,000 MG/250 ML BAG IVPB ONE (16:09)
[2018-02-27] MEDS ORDERED: LIDOCAINE 1%/EPI 1:100000 (20 ML MULTI DOSE VIAL) IJ ONE (16:10)
[2018-02-27] MEDS ORDERED: SODIUM CHLORIDE 0.9% 1000 ML INFUS.BAG IV ONE ×2 (16:13→18:47)
[2018-02-27] MEDS ORDERED: VANCOMYCIN 1,000 MG VIAL (RESTRICTED TO ID ONLY) ONE (16:30)
[2018-02-27] MEDS ORDERED: PIPERACILLIN/TAZOBACTAM 3.375 GM VIAL IVPB ONE (16:30)
--- NOTE | 2018-02-27 16:48 | PDOC ---
History of Present Illness <Winsome Cazares I - Last Filed: 02/27/18 20:46> - History of Present Illness Initial Comments: The patient is a 47M who presents for evaluation of a left leg laceration that he received on 02/25/2018. The laceration is 4cm, elliptical, anterior left thigh, hemostatic. Erythematous tracking noted on proximally on his thigh. The patient was recently seen at [facility] on Tuesday, sutures were to be place, but the patient left before being treated. Since that time he has cleaned the wound with H2O2 but has not showered since that time. The patient reports increased surrounding erythema Endorses recent subjective fevers that started before the injury 06/03 URI Denies changes in sensation, weakness, purulent discharge 02/27/18 18:43 <Shree Phan - Last Filed: 02/28/18 07:52> - General Chief Complaint: Injury Stated Complaint: fall,lac rt leg Time Seen by Provider: 02/27/18 15:23 Past History <Winsome Cazares I - Last Filed: 02/27/18 20:46> - Past Medical History Anemia: No Asthma: Yes Cancer: No Cardiac Disorders: No CVA: No COPD: No CHF: No Dementia: No Diabetes: No GI Disorders: No Disorders: No HTN: Yes Hypercholesterolemia: No Liver Disease: No Seizures: No Thyroid Disease: No - Surgical History Abdominal Surgery: No Appendectomy: No Cardiac Surgery: No Cholecystectomy: No Lung Surgery: No Neurologic Surgery: No Orthopedic Surgery: Yes (left thumb) - Immunization History Immunization Up to Date: Yes - Suicide/Smoking/Psychosocial Hx Smoking History: Never smoked Have you smoked in the past 12 months: No Number of Cigarettes Smoked Daily: 2 Information on smoking cessation initiated: Yes 'Breaking Loose' booklet given: 02/27/18 Hx Alcohol Use: No Drug/Substance Use Hx: No Substance Use Type: None Hx Substance Use Treatment: No <Shree Phan - Last Filed: 02/28/18 07:52> - Past Medical History Allergies/Adverse Reactions: Allergies Allergy/AdvReac Type Severity Reaction Status Date / Time No Known Allergies Allergy Verified 02/25/18 23:59 Home Medications: Ambulatory Orders Budesonide/Formeterol Fumarate [SYMBICORT 80/4.5mcg -] 2 puff IH BID #1 inhaler 05/29/17 Metoprolol Tartrate 100 mg PO TID #60 tablet 05/29/17 Montelukast Sodium [Singulair] 10 mg PO HS #30 tablet 05/29/17 Oxycodone HCl 30 mg PO Q6H PRN 05/29/17 Amoxicillin/Potassium Clav [Augmentin 875-125 Tablet] 1 each PO BID #20 tablet 02/27/18 Review of Systems - Review of Systems Able to Perform ROS?: Yes Comments:: GENERAL/CONSTITUTIONAL: No chills. No weakness HEAD, EYES, EARS, NOSE AND THROAT: No change in vision. No ear pain or discharge. No sore throat CARDIOVASCULAR: No chest pain or shortness of breath RESPIRATORY: No cough, wheezing, or hemoptysis GASTROINTESTINAL: No nausea, vomiting, diarrhea or constipation GENITOURINARY: No dysuria, frequency, or change in urination MUSCULOSKELETAL: No joint or muscle swelling or pain. +chronic pain SKIN: No rash NEUROLOGIC: No headache, vertigo, loss of consciousness, or change in strength/ sensation ENDOCRINE: No increased thirst. No abnormal weight change HEMATOLOGIC/LYMPHATIC: No anemia, easy bleeding, or history of blood clots ALLERGIC/IMMUNOLOGIC: No hives or skin allergy 02/27/18 16:48 Is the patient limited Slovenian proficient: No <Shree Phan - Last Filed: 02/28/18 07:52> *Physical Exam - Vital Signs Last Vital Signs Temp Pulse Resp BP Pulse Ox 97.9 F 66 20 155/88 96 02/27/18 15:19 02/27/18 15:19 02/27/18 15:19 02/27/18 15:19 02/27/18 15:19 <Winsome Cazares I - Last Filed: 02/27/18 20:46> - Vital Signs Last Vital Signs Temp Pulse Resp BP Pulse Ox 97.9 F 66 20 155/88 96 02/27/18 15:19 02/27/18 15:19 02/27/18 15:19 02/27/18 15:19 02/27/18 15:19 - Physical Exam Comments: GENERAL: Awake, alert, and fully oriented, in no acute distress HEAD: No signs of trauma, normocephalic, atraumatic EYES: PERRL, EOMI, sclera anicteric, conjunctiva clear ENT: Hearing grossly normal, nares patent, oropharynx clear without exudates. Moist mucosa NECK: Normal ROM, supple, no lymphadenopathy LUNGS: No distress, speaks full sentences, clear to auscultation bilaterally HEART:Regular rate and rhythm, normal S1 and S2, no murmurs appreciated, peripheral pulses normal and equal bilaterally ABDOMEN: Soft, nontender, normoactive bowel sounds. No guarding, no rebound EXTREMITIES : L ant thigh 4cm elliptical laceration, Normal range of motion, no edema. No clubbing or cyanosis NEUROLOGICAL: Cranial nerves II through XII grossly intact. Normal speech, normal gait, no focal sensorimotor deficits SKIN: 4cm elliptical laceration on L anterior thigh 02/27/18 16:49 <Shree Phan - Last Filed: 02/28/18 07:52> ED Treatment Course - LABORATORY CBC & Chemistry Diagram: 02/27/18 16:42 02/27/18 16:42 - ADDITIONAL ORDERS Additional order review: Laboratory Results 02/27/18 02/27/18 02/27/18 16:55 16:55 16:42 PT with INR 11.0 INR 0.98 PTT (Actin FS) 27.4 Sodium 135 L Potassium 3.7 Chloride 99 Carbon Dioxide 29 H Anion Gap 7 L BUN 24 H Creatinine 0.8 Creat Clearance w eGFR > 60 Random Glucose 113 H Calcium 8.7 Total Bilirubin 0.4 AST 26 ALT 21 Alkaline Phosphatase 60 Total Protein 6.5 Albumin 3.8 02/27/18 16:42 RBC 4.45 MCV 94.6 MCHC 32.6 RDW 12.8 MPV 7.9 - Medications Given in the ED: ED Medications Discontinued Medications Generic Name Dose Route Start Last Admin Trade Name Freq PRN Reason Stop Dose Admin Piperacillin Sod/Tazobactam 50 mls @ 100 mls/hr 02/27/18 16:09 02/27/18 17:07 Sod 3.375 gm/ Dextrose IVPB 02/27/18 16:38 100 mls/hr ONCE ONE Administration Protocol Lidocaine/Epinephrine 10 ml 02/27/18 16:10 02/27/18 17:24 Xylocaine 1%-Epi 1:100,000 IJ 02/27/18 16:11 Not Given ONCE ONE Oxycodone/Acetaminophen 1 combo 02/27/18 16:57 02/27/18 17:10 Percocet 5/325 - PO 02/27/18 16:58 1 combo ONCE ONE Administration Ranitidine HCl 150 mg 02/27/18 16:57 02/27/18 17:10 Zantac - PO 02/27/18 16:58 150 mg ONCE ONE Administration Sodium Chloride 1,000 ml 02/27/18 16:13 02/27/18 17:07 Normal Saline - IV 02/27/18 16:14 1,000 ml ONCE ONE Administration Sodium Chloride 1,000 ml 02/27/18 18:47 02/27/18 20:43 Normal Saline - IV 02/27/18 18:48 Not Given ONCE ONE Vancomycin HCl 1,000 mg 02/27/18 16:09 02/27/18 17:07 Vancomycin (Pre-Docked) IVPB 02/27/18 16:10 1,000 mg ONCE ONE Administration Protocol <Winsome Cazares I - Last Filed: 02/27/18 20:46> - LABORATORY CBC & Chemistry Diagram: 02/27/18 16:42 02/27/18 16:42 <Shree Phan - Last Filed: 02/28/18 07:52> Medical Decision Making - Medical Decision Making The patient is a 47M who presents for evaluation of a left leg laceration that he received on 02/25/2018. The laceration is 4cm, elliptical, anterior left thigh, hemostatic. Erythematous tracking noted on proximally on his thigh. CMP, CBC, Coags, Blood Cultures L thigh XR Vanc, Zosyn Consult to General Surgery to evaluation for bedside debridement v surgical debridement in OR -Patient pending evaluation as surgeon is in surgery at this time Patient willing to stay at this time despite walking out after two hours upon previous evaluation at [facility] 02/27/18 16:36 Patient signed out to Dr. Clayton and discussed the clinical presentation, work- up and ED course thus far. <Shree Phan - Last Filed: 02/28/18 07:52> *DC/Admit/Observation/Transfer - Discharge Dispostion Decision to Admit order: No <Winsome Cazares I - Last Filed: 02/27/18 20:46> <Shree Phan - Last Filed: 02/28/18 07:52> Diagnosis at time of Disposition: Laceration, Infection - Discharge Dispostion Disposition: HOME Condition at time of disposition: Improved - Prescriptions Prescriptions: Amoxicillin/Potassium Clav [Augmentin 875-125 Tablet] 1 each PO BID #20 tablet - Referrals Referrals: Keyon Alba MD [Staff Physician] - (CALL tomorrow for appt time on Tuesday) - Patient Instructions Additional Instructions: Postoperative instructions: You had a wound washout and local debridement on by Dr. Keyon Alba of [facility]. Activity: Resume your usual activities gradually. Do not shower until after seen by Dr. Alba on Tuesday for first dressing change. No bath or swimming until the wound has healed. Leave dressing in place until Tuesday in clinic. Pain: For pain, you may use and alternate Tylenol (acetaminophen) 1-2 pills and/ or ibuprofen 200 mg (1-3 pills) every 6 hours each as needed; this means that you can take one OR the other at 3-hour intervals. Do not take more than 4000 mg of acetaminophen in a day. Take medications as prescribed or indicated on the labeling. Take ALL antibiotics as directed. Follow-up: Call Dr. Alba's office at [phone] to make your postop appointment (Tuesday this week as advised). Clinic is held in the Diagnostic [facility] on the first floor of [facility], [address] Call the office if you have: * increasing pain not responsive to pain medication * fever of 101F or higher * vomiting * unusual or increasing bleeding or drainage from wounds * increasing redness or swelling at wound sites Also, see your primary medical doctor within 1 week. Wound care as per Dr. Alba's instructions. Take Augmentin 1 tablet twice a day for [address] Alba's office for an appointment as per her instructions. Return to the emergency department immediately with ANY new, persistent or worsening symptoms. Continue any medications as previously prescribed by your physician. You should follow up with your primary doctor as soon as possible regarding today's emergency department visit. . Please make sure your doctor reviews the results of your emergency evaluation. Thank you for coming to the Emergency Department today for your care. It was a pleasure to see you today. Please note that your evaluation is INCOMPLETE until you follow-up with your doctor.
[2018-02-27 16:57] LABS: HEMATOCRIT 42.1 % (35.4-49); HEMOGLOBIN 13.7 GM/dl (11.7-16.9); MCH 30.9 pg (25.7-33.7); MCHC 32.6 g/dl (32.0-35.9); MEAN CELL VOLUME 94.6 fl (80-96); MEAN PLT VOLUME 7.9 fl (7.5-11.1); PLATELET COUNT 257 K/MM3 (134-434); RBC 4.45 M/mm3 (4.00-5.60); RDW 12.8 % (11.9-15.9); WHITE BLOOD COUNT 10.6 K/mm3 (4.0-10.8)
[2018-02-27] MEDS ORDERED: RANITIDINE HCL 150 MG TABLET (FP) PO ONE (16:57)
[2018-02-27] MEDS ORDERED: RANITIDINE HCL 150 MG TABLET (FP) ONE (17:08)
[2018-02-27 17:12] LABS: ALBUMIN 3.8 g/dl (3.5-5.0); ALK PHOS 60 U/L (32-92); ANION GAP 7 MMOL/L (8-16); BILIRUBIN,TOTAL 0.4 mg/dl (0.2-1.0); BLOOD UREA NITROGEN 24 mg/dl (7-18); CALCIUM 8.7 mg/dl (8.4-10.2); CHLORIDE 99 mmol/L (98-107); CO2 29 mmol/L (22-28); CREATININE 0.8 mg/dl (0.6-1.3); GLUCOSE,RANDOM 113 mg/dl (74-106); POTASSIUM 3.7 mmol/L (3.5-5.1); SGOT/AST 26 U/L (10-42); SGPT/ALT 21 U/L (10-40); SODIUM 135 mmol/L (136-145); TOT PROT 6.5 g/dl (6.4-8.3)
[2018-02-27 17:38] LABS: INR 0.98 (0.82-1.09)
[2018-02-27] MEDS ORDERED: LIDO 2%/EPI 1:200000 PRESRVFRE (20 ML SDVIAL) ONE (20:10)
[2018-02-27] MEDS ORDERED: AMOX TR/POT CLAV 875MG/125MG TABLETS (FP) PO ONE (20:42)
[2018-02-27] MEDS ORDERED: AMOX TR/POT CLAV 875MG/125MG TABLETS (FP) ONE (20:44)
--- NOTE | 2018-02-27 20:59 | PROC ---
Incision and Drainage Indication/Location: Wound washout and local debridement of left inner thigh laceration Risks and Benefits Explained: Yes Consent on Chart: No (verbal consent) Betadine cleansed: Yes Anesthesia: 1% Lidocaine w/ Epi (15ml) Blade Size: 15 Irrigated with Normal Saline: Yes Plain packing: No Sterile Dressing Applied: Yes - Remarks Remarks: laceration sustained 2 days ago, untreated cleansed, infiltrated with local debrided/curetted with scalpel blade and forceps - surface debris and superficial tissues to bleeding tissue and fat hemostasis with local pressure elliptical wound measured 4 x 1 x 0.5 cm tiny deeper spot in middle of inferior aspect, shallow into muscle, clean dressed with saline-damp gauze and covered with gauze and tape
--- NOTE | 2018-02-27 21:06 | CONSULT ---
Consult Consult Specialty:: General Surgery Referred by:: Dr. Gerardo Reason for Consultation:: left medial thigh laceration - History of Present Illness Chief Complaint: left medial thigh laceration, pain History of Present Illness: 47yo M with HTN, asthma, sciatica and chronic back pain, originally presented to ER Tuesday night at [facility] after sustaining laceration to left medial thigh. He was walking on street and tripped over construction barrier flat on the road , but does not know what cut his leg. He eloped from ER before being fully evaluated and treated. He states he has been keeping it clean since then, using peroxide and this morning, antibiotic ointment. He came to [facility] ER today because it is still hurting badly, when walking and in general, and it looks redder and possibly infected. He and his and child have been ill on and off recently as well, with URI symptoms, some nausea/vomiting and f/c, though he has been better in last few days. Surgery is asked to assess. In ER, he is afebrile, with normal wbc. XR show no FB in wound. He got pain meds and abx from ER earlier. It has not been bleeding or draining. For pain at home, he has been using more than usual of his Percocet 7.5/325s, prescribed for back and leg pain. Sometimes, he also uses oxycodone 30mg prn, as he has an old prescription from almost a year ago. He does keep his pills outside of his home in a safe place at his shop. - History Source History Provided By: Patient Limitations to Obtaining History: Poor Historian - Past Medical History Cardio/Vascular: Yes: HTN Pulmonary: Yes: Asthma Musculoskeletal: Yes: Chronic low back pain, Other (sciatica) - Past Surgical History Past Surgical History: Yes: None Additional Surgical History: sutures in past, broken bones - Alcohol/Substance Use Hx Alcohol Use: No (pt denies use) History of Substance Use: reports: Prescription (oxycodone 30mg prn (has stockpile from ~1 yr ago but does not use often), percocet 7.5/[address] Pettit (sp?) for sciatica, states last Rx 3 wks ago but currently out because he used more since Tuesday) - Smoking History Smoking history: Never smoked Have you smoked in the past 12 months: No - Social History Usual Living Arrangement: With Spouse ADL: Independent Occupation: manual labor Home Medications - Allergies Allergies/Adverse Reactions: Allergies Allergy/AdvReac Type Severity Reaction Status Date / Time No Known Allergies Allergy Verified 02/25/18 23:59 - Home Medications Home Medications: Ambulatory Orders Budesonide/Formeterol Fumarate [SYMBICORT 80/4.5mcg -] 2 puff IH BID #1 inhaler 05/29/17 Metoprolol Tartrate 100 mg PO TID #60 tablet 05/29/17 Montelukast Sodium [Singulair] 10 mg PO HS #30 tablet 05/29/17 Oxycodone HCl 30 mg PO Q6H PRN 05/29/17 Amoxicillin/Potassium Clav [Augmentin 875-125 Tablet] 1 each PO BID #20 tablet 02/27/18 Home Medications (free text): also percocet 7.5/325 q4h prn pain;. albuterol MDI prn (2-3 times a week) and nebulized prn (more at night) Family Disease History - Family Disease History Family History: Unremarkable (noncontributory) Review of Systems - Review of Systems Constitutional: reports: Chills (with recent illness, not from laceration), Fever (w/recent illness, not from laceration) Eyes: reports: Other (reading glasses). denies: Recent Change in Vision HENT: reports: Nasal Congestion, Throat Pain. denies: Difficult Swallowing Neck: denies: Swollen Glands, Tenderness Cardiovascular: reports: Chest Pain (right side, occasionally, ?if asthma- related but feels different to him). denies: Palpitations Respiratory: reports: SOB (occasionally). denies: Cough Gastrointestinal: reports: Nausea (with recent illness, not from laceration). denies: Abdominal Pain, Constipation, Diarrhea, Vomiting Genitourinary: denies: Burning, Dysuria Musculoskeletal: reports: Back Pain (chronic), Extremity Pain (left leg at laceration; right leg more with sciatica pain since then), Other (left sciatica) Integumentary: reports: Change in Color (edges redder), Wound (left medial thigh /hpi). denies: Rash Neurological: denies: Dizziness, Headache Physical Exam Vital Signs: Vital Signs Temperature 97.9 F 02/27/18 15:19 Pulse Rate 66 02/27/18 15:19 Respiratory Rate 20 02/27/18 15:19 Blood Pressure 155/88 02/27/18 15:19 O2 Sat by Pulse Oximetry (%) 96 02/27/18 15:19 Constitutional: Yes: Well Nourished, No Distress, Calm Eyes: Yes: Conjunctiva Clear, EOM Intact HENT: Yes: Atraumatic, Normocephalic Neck: Yes: Supple, Trachea Midline Cardiovascular: Yes: Regular Rate and Rhythm Respiratory: Yes: Regular, CTA Bilaterally Gastrointestinal: Yes: Soft. No: Tenderness ...Rectal Exam: Yes: Deferred Musculoskeletal: Yes: Muscle Pain (left medial thigh at wound site). No: Joint Swelling Extremities: Yes: Erythema (local to laceration), Other (4cm laceration left medial thigh, not approximated, appears shallow, dirty/debris in wound, reddened edges but no significant cellulitis surrounding, not indurated, mildly tender, no drainage or bleeding). No: Cool, Cyanosis Edema: No Peripheral Pulses WNL: Yes Integumentary: Yes: Laceration (L med thigh). No: Jaundice, Rash Wound/Incision: Yes: Open to air, Reddened, Unapproximated. No: Draining, Bleeding Neurological: Yes: Alert, Oriented Psychiatric: Yes: Alert, Oriented Labs: CBC, BMP 02/27/18 16:42 02/27/18 16:42 Imaging - Results X-ray: Image Reviewed (femur xrays reviewed - no FB apparent, no fx) Problem List - Problems (1) Laceration of left thigh with complication Assessment/Plan: laceration sustained 2 days ago, untreated discussed with patient need to wash out wound and debride for complete evaluation and proper dressing will need to heal by secondary intention ER gave Vanco, Zosyn IV and pain meds earlier local procedure performed as below see procedure note: cleansed, infiltrated with local debrided/curetted with scalpel blade and forceps - surface debris and superficial tissues to bleeding tissue and fat hemostasis with local pressure elliptical wound measured 4 x 1 x 0.5 cm tiny deeper spot in middle of inferior aspect, shallow into muscle, clean dressed with saline-damp gauze and covered with gauze and tape Augmentin first dose in ER, to be Rx by ER to start in am alternating tylenol, ibuprofen prn for pain pt was counseled to take leftover oxycodone to a pharmacy for disposal pt to leave dressing in place, not get it wet, and f/u with me Wed in clinic at [facility] for dressing change and further instructions also to f/u with PMD next week after Tuesday, instructed to keep clean with soap and water - no alcohol, no peroxide, no creams or ointments, and keep covered with gauze and tape until healed, saline-damp ok Thank you for the opportunity to participate in the care of this patient. Code(s): S71.112A - LACERATION WITHOUT FOREIGN BODY, LEFT THIGH, INIT ENCNTR Qualifiers: Encounter type: sequela Qualified Code(s): S71.112S - Laceration without foreign body, left thigh, sequela (2) Left thigh pain Code(s): M79.652 - PAIN IN LEFT THIGH (3) Sciatica of left side Code(s): M54.32 - SCIATICA, LEFT SIDE (4) Hypertension Code(s): I10 - ESSENTIAL (PRIMARY) HYPERTENSION (5) Asthma Code(s): J45.909 - UNSPECIFIED ASTHMA, UNCOMPLICATED Qualifiers: Asthma severity: moderate Asthma persistence: persistent Asthma complication type: uncomplicated Qualified Code(s): J45.40 - Moderate persistent asthma, uncomplicated
== END 2018-02-27 20:50 | disposition home or self-care (01) ==
LOC: FER 15:18
PROC: 3E03329 Introduction of Other Anti-infective into Peripheral Vein, Percutaneous Approach (ICD-10-PCS; principal; 2018-02-27)
PROC: 3E0337Z Introduction of Electrolytic and Water Balance Substance into Peripheral Vein, Percutaneous Approach (ICD-10-PCS; 2018-02-27)
PROC: 0HBJXZZ Excision of Left Upper Leg Skin, External Approach (ICD-10-PCS; 2018-02-27)
DX: S71.112D Laceration without foreign body, left thigh, subsequent encounter (principal); L08.9 Local infection of the skin and subcutaneous tissue, unspecified; J45.909 Unspecified asthma, uncomplicated; W01.0XXD Fall on same level from slipping, tripping and stumbling without subsequent striking against object, subsequent encounter; I10 Essential (primary) hypertension; Y93.9 Activity, unspecified; Y92.9 Unspecified place or not applicable; G89.29 Other chronic pain; M54.5 Low back pain; M79.652 Pain in left thigh; M54.32 Sciatica, left side; J45.40 Moderate persistent asthma, uncomplicated; Z72.0 Tobacco use
CPT/HCPCS: 36415; 73552-TC-LT-FY; 80053; 85027; 85610; 85730; 87040; 96361; 96365; 96375; 97597; 99282-25; J7030

== ENCOUNTER 2019-05-29 05:13 | Emergency (ER) | payer OTHER ==
[2019-05-29 05:24] VITALS: TEMP 99; BMI 27.8
[2019-05-29] MEDS ORDERED: KETOROLAC TROMETHAMINE 60 MG/2 ML VIAL IM ONE (05:31)
[2019-05-29] MEDS ORDERED: METHOCARBAMOL 500 MG TABLET PO ONE (05:32)
[2019-05-29] MEDS ORDERED: predniSONE 20 MG TABLET (UD) PO ONE (05:32)
--- NOTE | 2019-05-29 05:37 | PDOC ---
History of Present Illness - General Chief Complaint: Pain, Acute Stated Complaint: PAIN IN ABDOMEN,GROIN Time Seen by Provider: 05/29/19 05:29 History Source: Patient Exam Limitations: No Limitations - History of Present Illness Initial Comments: 05/29/19 06:40 This is a 48-year-old male who comes in complaining of progressive acute low back pain radiating to his butt cheek and his anterior abdominal wall. Patient said he was working in deep mud yesterday when his foot became stuck. Patient went to pull his foot loose when he felt a sudden pop in his back initially patient said the pain radiated to the buttocks but over the next several hours it progressively got worse radiating around to the anterior abdominal wall and whenever he moves he gets associated severe spasms of the anterior abdominal wall groin and buttocks area. Patient denies any numbness or weakness associated with the pain. Allergies: as per nursing notes Past Medical History: none Social history: Lives with family. No smoking. No alcohol. No illicit drugs. Surgical history: None General: No fevers or chills, no weakness, no weight loss HEENT: No change in vision. No sore throat,. No ear pain CardioVascular: no chest discomfort. No shortness of breath Respiratory:No cough, or wheezing. Gastrointestinal: no nausea, vomiting, diarrhea or constipation, No rectal bleeding Genitourinary: No dysuria, hematuria, or frequency Musculoskeletal: No joint or muscle pain or swelling Neurologic: No headache, vertigo, dizziness or loss of consciousness Psychiatric: nor depression Skin: No rashes or easy bruising Endocrine: no increased thirst or abnormal weight change Allergic: no skin or latex allergy All other systems reviewed and normal GENERAL: The patient is awake, alert, and fully oriented, in no acute distress. HEAD: Normal with no signs of trauma. EYES: Pupils equal, round and reactive to light, extraocular movements intact, sclera anicteric, conjunctiva clear. BACK: There is tenderness on palpation of the lower lumbar spine with bilateral paraspinal spasms radiating around to the anterior abdominal wall. Neurovascular is intact. Rectal exam there is normal tone brown stool EXTREMITIES:atraumatic, Normal range of motion, no edema. NEUROLOGICAL: Normal speech, antalgic gait there is good strength bilateral lower extremities with normal sensation. There is limited range of motion secondary to the pain PSYCH: Normal mood, normal affect. SKIN: Warm, Dry, normal turgor, no rashes or lesions noted. Assessment and plan: This is a 48-year-old male with low back pain radiating to his anterior abdominal wall and butt cheek. Will obtain a CT of the lumbar spine and give patient Toradol, prednisone and Robaxin. Care of this patient was transferred to Dr. Stewart at 7 AM patient somewhat better post meds, patient is still waiting for CAT scan. Case discussed in detail with oncoming Emergency Physician including history, physical exam and ancillary studies. Oncoming Emergency Physician has assumed care for the patient and will complete the evaluation and treatment. Patient is aware of the plan. Pt is clinically unchanged and stable. 05/30/19 01:55 Past History - Past Medical History Allergies/Adverse Reactions: Allergies Allergy/AdvReac Type Severity Reaction Status Date / Time No Known Allergies Allergy Verified 02/25/18 23:59 Home Medications: Ambulatory Orders Metoprolol Tartrate 100 mg PO TID #60 tablet 05/29/17 Montelukast Sodium [Singulair] 10 mg PO HS #30 tablet 05/29/17 Oxycodone HCl 30 mg PO Q6H PRN 05/29/17 Carisoprodol [Soma] 350 mg PO DAILY 05/29/19 Methocarbamol [Robaxin -] 1,500 mg PO QID 3 Days #24 tablet 05/29/19 Methylprednisolone [Medrol Dose Shaquille] 4 mg PO ASDIR #21 tablet 05/29/19 Zolpidem Tartrate [Ambien] 10 mg PO HS 05/29/19 Anemia: No Asthma: Yes Cancer: No Cardiac Disorders: No CVA: No COPD: No CHF: No Dementia: No Diabetes: No GI Disorders: No Disorders: No HTN: Yes Hypercholesterolemia: No Liver Disease: No Seizures: No Thyroid Disease: No Other medical history: CHRONIC BACK - Surgical History Abdominal Surgery: No Appendectomy: No Cardiac Surgery: No Cholecystectomy: No Lung Surgery: No Neurologic Surgery: No Orthopedic Surgery: Yes (left thumb) - Immunization History Immunization Up to Date: Yes - Psycho Social/Smoking Cessation Hx Smoking History: Never smoked Have you smoked in the past 12 months: No Number of Cigarettes Smoked Daily: 2 Information on smoking cessation initiated: No 'Breaking Loose' booklet given: 02/27/18 Hx Alcohol Use: No Drug/Substance Use Hx: No Substance Use Type: None Hx Substance Use Treatment: No *Physical Exam - Vital Signs Last Vital Signs Temp Pulse Resp BP Pulse Ox 99 F 73 20 175/99 H 96 05/29/19 05:19 05/29/19 05:19 05/29/19 05:19 05/29/19 05:19 05/29/19 05:19 Discharge - Discharge Information Problems reviewed: Yes Clinical Impression/Diagnosis: Bulging discs Condition: Stable Disposition: HOME - Admission No - Additional Discharge Information Prescriptions: Methocarbamol [Robaxin -] 1,500 mg PO QID 3 Days #24 tablet Methylprednisolone [Medrol Dose Shaquille] 4 mg PO ASDIR #21 tablet - Follow up/Referral Referrals: Osbaldo Vela MD, FAANS [Staff Physician] - Huan Garcia MD [Primary Care Provider] - - Patient Discharge Instructions Patient Printed Discharge Instructions: Herniated Disc Additional Instructions: Take Medrol Dosepak as prescribed. Take Robaxin as prescribed. Take over-the- counter Tylenol as directed on package. Follow-up with Dr. Tao this week. Return to the emergency department immediately for any weakness bowel or bladder incontinence or for any concerns. - Post Discharge Activity Work/Back to School Note: Back to Work
[2019-05-29] MEDS ORDERED: predniSONE 20 MG TABLET (UD) ONE (05:45)
[2019-05-29] MEDS ORDERED: KETOROLAC TROMETHAMINE 60 MG/2 ML VIAL ONE (05:45)
[2019-05-29] MEDS ORDERED: METHOCARBAMOL 500 MG TABLET ONE (05:45)
[2019-05-29 06:43] VITALS: BP 141/83; PULSE 62
--- NOTE | 2019-05-29 09:25 | PDOC ---
*Physical Exam - Vital Signs Last Vital Signs Temp Pulse Resp BP Pulse Ox 99 F 62 20 141/83 97 05/29/19 05:19 05/29/19 06:42 05/29/19 06:42 05/29/19 06:42 05/29/19 06:42 ED Treatment Course - ADDITIONAL ORDERS Additional order review: Laboratory Results 05/29/19 07:30 Urine Color Yellow Urine Appearance Clear Urine pH 5.5 Urine Protein Negative Urine Glucose (UA) Negative Urine Ketones Negative Urine Blood Negative Urine Nitrite Negative Urine Bilirubin Negative Urine Urobilinogen 0.2 Ur Leukocyte Esterase Negative - Medications Given in the ED: ED Medications Discontinued Medications Generic Name Dose Route Start Last Admin Trade Name Freq PRN Reason Stop Dose Admin Ketorolac Tromethamine 60 mg 05/29/19 05:31 05/29/19 05:51 Toradol Injection - IM 05/29/19 05:32 60 mg ONCE ONE Administration Methocarbamol 1,000 mg 05/29/19 05:32 05/29/19 05:52 Robaxin - PO 05/29/19 05:33 1,000 mg ONCE ONE Administration Prednisone 60 mg 05/29/19 05:32 05/29/19 05:52 Deltasone - PO 05/29/19 05:33 60 mg ONCE ONE Administration Medical Decision Making - Medical Decision Making 05/29/19 09:16 Patient signed out to me pending CAT scan No weakness no incontinence on examination CAT scan demonstrates multiple levels of Disc bulge with S1 nerve impingement We will discharge on Medrol Dosepak and Robaxin Patient provided with neurosurgery follow-up time off from work and very strict return instructions Findings, the need for follow-up and strict return instructions discussed with patient. Discharge - Discharge Information Problems reviewed: Yes Clinical Impression/Diagnosis: Bulging discs Condition: Stable Disposition: HOME - Admission No - Follow up/Referral Referrals: Huan Garcia MD [Primary Care Provider] - Osbaldo Vela MD, FAANS [Staff Physician] - - Patient Discharge Instructions Patient Printed Discharge Instructions: Herniated Disc Additional Instructions: Take Medrol Dosepak as prescribed. Take Robaxin as prescribed. Take over-the- counter Tylenol as directed on package. Follow-up with Dr. Tao this week. Return to the emergency department immediately for any weakness bowel or bladder incontinence or for any concerns. - Post Discharge Activity Work/Back to School Note: Back to Work
== END 2019-05-29 09:29 | disposition home or self-care (01) ==
LOC: FER 05:13
PROC: 3E0233Z Introduction of Anti-inflammatory into Muscle, Percutaneous Approach (ICD-10-PCS; principal; 2019-05-29)
DX: M51.9 Unspecified thoracic, thoracolumbar and lumbosacral intervertebral disc disorder (principal); Z72.0 Tobacco use; I10 Essential (primary) hypertension; J45.909 Unspecified asthma, uncomplicated
CPT/HCPCS: 72131-TC; 81003; 99281-25